=== PATIENT | female | born 1955 | race Caucasian/White ===

== ENCOUNTER 2016-03-03 13:32 | Day surgery (SDC) | payer OTHER ==
[~2016-03-03] VITALS: Ht 160 cm; Wt 68.0 kg
[~2016-03-03 13:32] MED LIST: AMLO-218 PO; ATOR20TA38 PO; ESOM20CA PO; GABA300C16 PO; HYDR12.58 PO; NAPR550T2 PO; SITA1TAB7 PO
[2016-03-03 14:55] VITALS: Ht 160 cm; Wt 68.0 kg
[2016-03-03] MEDS ORDERED: GLIP5TAB13 PO (15:08)
[2016-03-03] MEDS ORDERED: LOSA1TAB19 PO (15:08)
[2016-03-03] MEDS ORDERED: OMEP20CA16 PO (15:08)
[2016-03-03 15:58] VITALS: BP 147/70; PULSE 67; RESP 18
[2016-03-03] MEDS ORDERED: MIDAZOLAM 1 MG/ML 2 ML INJ ONE (16:06)
[2016-03-03] MEDS ORDERED: LIDOCAINE 2% (SDV) 5 ML INJ ONE (16:06)
[2016-03-03] MEDS ORDERED: PROPOFOL 20 ML ONE ×2 (16:06→16:35)
[2016-03-03 16:43] VITALS: BP 132/72; PULSE 71; RESP 14
[2016-03-03 17:10] VITALS: BP 157/79; PULSE 66; RESP 14
--- NOTE | 2016-03-03 19:34 | GILP ---
DATE OF PROCEDURE: NAME OF PROCEDURE: Colonoscopy to cecum. SURGEON: Marci Charles MD. HISTORY AND INDICATIONS: The patient is being evaluated for colorectal cancer screening. PREMEDICATION: Monitored anesthesia care by anesthesiologist. INSTRUMENT USED: Olympus colonoscope. PREPARATION: Adequate. TECHNIQUE: After informed consent, with the patient/relatives understanding the procedure, its indic ations potential risks and complications, including but not limited to: allergic reaction, bleeding, perforation, infection, missed lesions, and, after all pertinent questions were answered to the pat ient's satisfaction, the patient/relatives signed the witnessed informed consent. Following this, premedication was administered slowly IV push by under careful cardiovascular and re spiratory monitoring with pulse oximetry, automatic blood pressure and care consultant. Once the sedati ve effect was achieved, the patient was placed in the left lateral decubitus position, digital recta l examination was performed. The colonoscope was then introduced and advanced under visual control throughout all segments of the colon including: the rectum, sigmoid, descending colon, splenic flexu re, transverse colon, hepatic flexure, ascending colon and finally reaching the cecum which was brennon rly identified by transillumination, finger indentation and the ileocecal valve. Careful examinatio n of the mucosa of the lower gastrointestinal tract both on insertion as well as withdrawal of the i nstrument disclosed the following findings: Rectal Examination: No evidence of perirectal disease, no masses. Colonic Mucosa: The colon mucosa shows no abnormalities. Ileocecal valve was clearly identified an d appears unremarkable. The instrument was withdrawn. On withdrawal of the instrument, no addition al abnormalities are noted with exception of moderate sized internal hemorrhoids. The instrument was then withdrawn, the patient tolerated the procedure well and was transferred out of the Endoscopy Suite awake and in good condition to continue recovery under observation. IMPRESSION: 1. Normal colonic mucosa to cecum. 2. Moderate size internal hemorrhoids. PLAN: The patient will be placed on a high fiber diet, annual Hemoccult stool testing, and screenin g colonoscopy in 10 years. Dictated By: MARCI CHARLES MS/MARS Conf#: [id number] DID#: [id number] CC: MARCI CHARLES;*EndCC*
--- NOTE | 2016-03-03 19:37 | GILP ---
DATE OF PROCEDURE: NAME OF PROCEDURE: Esophagogastroduodenoscopy with biopsies. SURGEON: Marci Charles MD HISTORY AND INDICATIONS: The patient is being evaluated for abdominal pain. PREMEDICATION: Monitored anesthesia care by anesthesiologist. INSTRUMENT USED: Olympus panendoscope. TECHNIQUE: After informed consent, with the patient/relatives understanding the procedure, its krzysztof cations, potential risks and complications, including but not limited to: allergic reaction, bleedin g, perforation or infection, and after all pertinent questions were answered to the patient's satisf action, the patient/relatives signed witnessed informed consent. Following this, premedication was administered slowly IV push under careful cardiovascular and respi ratory monitoring with pulse oximetry, automatic blood pressure and labor relations officer. Once the sedative effect was achieved the patient was place in the left lateral decubitus, the panen doscope was introduced and advanced under visual control. Careful examination of the upper gastrointestinal tract, both on insertion as well as withdrawal of the instrument disclosed the following findings: ESOPHAGUS: The distal esophagus shows mild erythema and edema of the mucosa. Of note, the patient is receiving PPIs. STOMACH: Upon entrance to the stomach, air was insufflated. The gastric louie distended normally. There is erythema and edema of the mucosa of a moderate degree. Biopsies were obtained to rule out H pylori infection. PYLORUS: The pylorus appears patent and within normal limits with no evidence of gastric outlet obs truction. DUODENUM: The duodenal mucosa was carefully examined in the duodenal bulb as well as the second por tion of the duodenum and appears unremarkable with no evidence of duodenitis, ulcer or neoplasm. The instrument was then withdrawn. The patient tolerated the procedure well and was transferred out of the endoscopy suite awake and in good condition to continue recovery under observation. IMPRESSION: 1. Mild distal esophagitis, under treatment. 2. Moderate gastritis, rule out Helicobacter pylori infection. Biopsies obtained. PLAN: The patient will follow up as an outpatient. Pathology will be reviewed as soon as available . Further recommendation will depend on patient's clinical course as well as review of biopsies. Dictated By: MARCI CHARLES MS/MARS Conf#: [id number] DID#: [id number]
== END 2016-03-03 16:37 | disposition home or self-care (01) ==
LOC: GIL 13:32
PROVIDERS: ATTEND Internal Medicine Gastroenterology
DX: Z12.11 Encounter for screening for malignant neoplasm of colon (principal); K29.50 Unspecified chronic gastritis without bleeding; K20.8 Other esophagitis; K64.8 Other hemorrhoids; I10 Essential (primary) hypertension; E11.9 Type 2 diabetes mellitus without complications; E78.5 Hyperlipidemia, unspecified
CPT/HCPCS: 43239; 45378; 82962; 88305; 88312; J2250; Z7610

== ENCOUNTER 2016-12-02 13:15 | Emergency (ER) | payer OTHER ==
[~2016-12-02] VITALS: Ht 152.4 cm; Wt 70.5 kg
[~2016-12-02 13:15] MED LIST changes: -AMLO-218 PO; -ESOM20CA PO; +GLIP5TAB13 PO; -HYDR12.58 PO; +LOSA1TAB19 PO; -NAPR550T2 PO; +OMEP20CA16 PO
[2016-12-02 13:18] VITALS: Ht 152.4 cm; Wt 70.5 kg
[2016-12-02] MEDS ORDERED: ACETAMINOPHEN 325 MG TAB PO ONE (14:30)
--- NOTE | 2016-12-02 15:03 | RADRPT ---
PROCEDURE: CT brain without contrast CLINICAL INDICATION: Head injury TECHNIQUE: CT of the brain without contrast performed on a multidetector CT scanner, with multiplan ar reformats. One or more of the following dose reduction techniques were used: Automated exposure control, adjustment in mA and / or kV according to patient size, use of iterative reconstructive kitty hnique. CTDIvol = 45 mGy; DLP = 630 mGy-cm. COMPARISON: None available FINDINGS: No acute intracranial hemorrhage is identified. No extra-axial fluid collection is seen. There is no mass effect. No midline shift is identified. The ventricles and sulci are very mildly enlarged compatible with volume loss. The density of the brain appears unremarkable. Irizarry-white differentiation is preserved. Atherosclerotic calcifications of the intracranial internal carotid arteries are noted. Calvarium and skull base are intact. Mastoid air cells and imaged paranasal sinuses grossly clear. IMPRESSION: 1. No evidence of acute intracranial pathology. 2. Mild volume loss. RPTAT: VV .Jose Church MD, MD Date Time Electronically viewed and signed by .Jose Church MD, on 12/02/2016 15:02 .O/
--- NOTE | 2016-12-02 15:06 | RADRPT ---
PROCEDURE: CT face without contrast CLINICAL INDICATION: Trauma/injury to face - nose TECHNIQUE: CT of the face without contrast was performed on a multidetector CT scanner, with multip lanar reformats. One or more of the following dose reduction techniques were used: Automated exposu re control, adjustment in mA and / or kV according to patient size, use of iterative reconstructive technique. CTDIvol = 29 mGy and DLP = 503 mGy-cm. COMPARISON: None available. FINDINGS: No fracture is identified. Facial bones are intact. Bilateral orbital structures are unremarkable. T here is no temporomandibular joint dislocation. Mild degenerative changes seen at the temporal jordan bular joints. The patient is noted to be edentulous. Mild bilateral maxillary sinus, mild-moderate r ight and mild left anterior ethmoid air cell mucosal thickening, and mild left frontal sinus secreti ons are seen. IMPRESSION: 1. No facial fracture/dislocation or orbital injury identified. 2. Nasal sinus disease described above. 3. Mild bilateral temporomandibular joint degenerative changes. RPTAT: VV .Jose Church MD, MD Date Time Electronically viewed and signed by .Jose Church MD, on 12/02/2016 15:06 .O/
[2016-12-02] MEDS ORDERED: ACET500C5 PO (15:25)
--- NOTE | 2016-12-02 16:20 | ERD ---
ER Documentation Chief Complaint Date/Time DATE: 12/02/16 TIME: 16:16 Chief Complaint nasal swelling - something fell to her nose HPI 31-year-old female patient with a past medical history of diabetes presents to the ED complaining of a head and facial injury that occurred earlier today. Daughter was with patient at this time and stated that a loose fence fell onto her face and hit her head. Denies any loss of consciousness. Denies any fever , chills, nausea, vomiting, headache. States that patient's left nare had some bleeding but it stopped with added pressure. Denies taking any blood thinners. ROS All systems reviewed and are negative except as per history of present illness. Medications Home Meds Active Scripts Acetaminophen* (Tylophen*) 500 Mg Capsule, 1 CAP PO Q6H Y for PAIN AND OR ELEVATED TEMP, #20 CAP Prov:KARTHIK SANTILLAN PA-C 12/02/16 Reported Medications Losartan-Hydrochlorothiazide (Losartan-HCTZ) 50-12.5 Mg Tab, 1 TAB PO DAILY, TAB 03/03/16 Omeprazole* (Omeprazole*) 20 Mg Capsule.dr, 20 MG PO DAILY, #30 CAP 03/03/16 Glipizide* (Glipizide*) 5 Mg Tablet, 5 MG PO AC BREAKFAST, TAB 03/03/16 Gabapentin* (Gabapentin*) 300 Mg Capsule, 300 MG PO QHS, #60 CAP 04/16/15 Atorvastatin Calcium* (Atorvastatin Calcium*) 20 Mg Tablet, 20 MG PO QHS, #30 TAB 04/16/15 Sitagliptin Phos-Metformin Hcl (Janumet) 50-1,000 Mg Tablet, 1 TAB PO WITH BREAKFAST DINNE, #60 TAB 04/16/15 Allergies Allergies: Coded Allergies: No Known Allergy (Unverified , 04/16/15) PMhx/Soc Anesthesia Reaction: No Hx Neurological Disorder: No Hx Respiratory Disorders: No Hx Cardiac Disorders: Yes (HTN, HLD) Hx Psychiatric Problems: No Hx Miscellaneous Medical Probl: Yes (DM, GASTRITIS) Hx Alcohol Use: No Hx Substance Use: No Hx Tobacco Use: No Smoking Status: Never smoker Physical Exam Vitals Vital Signs Date Time Temp Pulse Resp B/P Pulse Ox O2 Delivery O2 Flow Rate FiO2 12/02/16 13:18 99.0 77 19 178/86 99 Physical Exam Const: Hmk-zxo-yoaczyrld, well-nourished. In no acute distress. Head: Atraumatic, normocephalic Eyes: Normal Conjunctiva without injection. No purulent discharge. PERRLA. EOMI ENT: Normal external ear. Ear canal without erythema. Tympanic membrane pearly irizarry without effusion or bulging. Nasal canal clear with normal turbinates. Moist oropharynx without tonsillar exudates. Non-erythematous pharynx. Uvula midline. No drooling. No trismus. Neck: No cervical midline tenderness. Full range of motion. No meningismus. No cervical lymphadenopathy. No JVD. Resp: Clear to auscultation bilaterally. No wheezing, rhonchi, rales, or crackles. No accessory muscle use. No retractions. Cardio: Regular rate and rhythm. No murmurs, rubs or gallops. Abd: Soft, non tender, non distended. Normal bowel sounds. No palpable masses. No rebound tenderness. No guarding. Negative McBurney's Point. Negative Blanton's Sign. Skin: Normal skin turgor. No petechiae or rashes Back: No midline tenderness. No CVA tenderness. Ext: No cyanosis, or edema. Distal pulses intact bilaterally. Neur: Awake and alert. Normal gait. Normal coordination. Cranial Nerves II- VII intact. Normal finger to nose. Muscle strength 5/5. Sensation intact. Psych: Normal Mood and Affect Results 24 hrs Current Medications Medications (Trade) Dose Ordered Sig/Ruby Route PRN Reason Start Time Stop Time Status Last Admin Dose Admin Acetaminophen (Tylenol Tab) 650 mg ONCE ONCE PO 12/02/16 14:30 12/02/16 14:31 DC 12/02/16 15:14 Procedures/MDM 61-year-old female patient with no significant past medical history presents to the ED complaining of nose injury and facial injury. Patient is afebrile and nontoxic-appearing. Patient has normal vital signs. CT of the brain without contrast, CT of the facial bones was ordered to further evaluate patient. Patient was given Tylenol here in the ED with improvement of her symptoms. PROCEDURE: CT brain without contrast CLINICAL INDICATION: Head injury TECHNIQUE: CT of the brain without contrast performed on a multidetector CT scanner, with multiplanar reformats. One or more of the following dose reduction techniques were used: Automated exposure control, adjustment in mA and / or kV according to patient size, use of iterative reconstructive technique. CTDIvol = 45 mGy; DLP = 630 mGy-cm. COMPARISON: None available FINDINGS: No acute intracranial hemorrhage is identified. No extra-axial fluid collection is seen. There is no mass effect. No midline shift is identified. The ventricles and sulci are very mildly enlarged compatible with volume loss. The density of the brain appears unremarkable. Irizarry-white differentiation is preserved. Atherosclerotic calcifications of the intracranial internal carotid arteries are noted. Calvarium and skull base are intact. Mastoid air cells and imaged paranasal sinuses grossly clear. IMPRESSION: 1. No evidence of acute intracranial pathology. 2. Mild volume loss. PROCEDURE: CT face without contrast CLINICAL INDICATION: Trauma/injury to face - nose TECHNIQUE: CT of the face without contrast was performed on a multidetector CT scanner, with multiplanar reformats. One or more of the following dose reduction techniques were used: Automated exposure control, adjustment in mA and / or kV according to patient size, use of iterative reconstructive technique. CTDIvol = 29 mGy and DLP = 503 mGy-cm. COMPARISON: None available. FINDINGS: No fracture is identified. Facial bones are intact. Bilateral orbital structures are unremarkable. There is no temporomandibular joint dislocation. Mild degenerative changes seen at the temporal mandibular joints. The patient is noted to be edentulous. Mild bilateral maxillary sinus, mild-moderate right and mild left anterior ethmoid air cell mucosal thickening, and mild left frontal sinus secretions are seen. IMPRESSION: 1. No facial fracture/dislocation or orbital injury identified. 2. Nasal sinus disease described above. 3. Mild bilateral temporomandibular joint degenerative changes. Low suspicion for septal hematoma, intracranial bleed, fractures, dislocation, subarachnoid hemorrhage, meningitis, TIA, stroke, subdural hematoma, epidural hematoma, cavernous sinus thrombosis or other emergent conditions. Discharge medications: Tylenol Follow up with primary care physician in 1-2 days. Instructed patient to return to the ED sooner for any worsening symptoms. Patient's questions were answered. Patient understood and agreed with discharge plan. Patient discharged stable. Departure Diagnosis: Primary Impression: Head injury Encounter type: initial encounter Qualified Code: S09.90XA - Injury of head , initial encounter Additional Impression: Facial injury Encounter type: initial encounter Qualified Code: S09.93XA - Facial injury, initial encounter Condition: Stable Patient Instructions: Facial Contusion, No Wakeup, HEAD INJURY, No Wake-Up ( Adult) Referrals: [facility] YOU HAVE RECEIVED A MEDICAL SCREENING EXAM AND THE RESULTS INDICATE THAT YOU DO NOT HAVE A CONDITION THAT REQUIRES URGENT TREATMENT IN THE EMERGENCY DEPARTMENT. FURTHER EVALUATION AND TREATMENT OF YOUR CONDITION CAN WAIT UNTIL YOU ARE SEEN IN YOUR DOCTORS OFFICE WITHIN THE NEXT 1-2 DAYS. IT IS YOUR RESPONSIBILITY TO MAKE AN APPOINTMENT FOR FOLOW-UP CARE. IF YOU HAVE A PRIMARY DOCTOR --you should call your primary doctor and schedule an appointment IF YOU DO NOT HAVE A PRIMARY DOCTOR YOU CAN CALL OUR PHYSICIAN REFERRAL HOTLINE AT IF YOU CAN NOT AFFORD TO SEE A PHYSICIAN YOU CAN CHOSE FROM THE FOLLOWING [facility] [address] [facility] [address] [facility] [facility] [address] [facility] [address] [facility] [address] [facility] [facility] [address] [facility] [facility] YOU HAVE RECEIVED A MEDICAL SCREENING EXAM AND THE RESULTS INDICATE THAT YOU DO NOT HAVE A CONDITION THAT REQUIRES URGENT TREATMENT IN THE EMERGENCY DEPARTMENT. FURTHER EVALUATION AND TREATMENT OF YOUR CONDITION CAN WAIT UNTIL YOU ARE SEEN IN YOUR DOCTORS OFFICE WITHIN THE NEXT 1-2 DAYS. IT IS YOUR RESPONSIBILITY TO MAKE AN APPOINTMENT FOR FOLOW-UP CARE. IF YOU HAVE A PRIMARY DOCTOR --you should call your primary doctor and schedule and appointment IF YOU DO NOT HAVE A PRIMARY DOCTOR YOU CAN CALL OUR PHYSICIAN REFERRAL HOTLINE AT . IF YOU CAN NOT AFFORD TO SEE A PHYSICIAN YOU CAN CHOSE FROM THE FOLLOWING [facility]: [facility] [address] [place] [address] [facility] [address] [place] [address] [facility] [address] [place] [address] [facility] URGENT CARE/SPECIALTIES Additional Instructions: Visite a mendez mdico maana para un EXAMEN para la reexaminacin de la nariz.Regrese a estas instalaciones si no se mejora kirill esperbamos o kirill le dijimos. KARTHIK SANTILLAN PA-C Dec 02, 2016 16:20
== END 2016-12-02 16:20 | disposition home or self-care (01) ==
LOC: FTE 13:15
DX: S09.90XA Unspecified injury of head, initial encounter (principal); S09.93XA Unspecified injury of face, initial encounter; I10 Essential (primary) hypertension; E11.9 Type 2 diabetes mellitus without complications; R51 Headache; W20.8XXA Other cause of strike by thrown, projected or falling object, initial encounter; Y92.9 Unspecified place or not applicable; Z79.84 Long term (current) use of oral hypoglycemic drugs
CPT/HCPCS: 70450; 70486; Z7502; Z7610

== ENCOUNTER 2016-12-09 00:06 | Emergency (ER) | payer OTHER ==
[~2016-12-09] VITALS: Ht 160 cm; Wt 70.5 kg
[~2016-12-09 00:06] MED LIST changes: +ACET500C5 PO
[2016-12-09 00:20] VITALS: Ht 160 cm; Wt 70.5 kg
[2016-12-09 01:40] VITALS: TEMP 98.2
[2016-12-09] MEDS ORDERED: DIPHENHYDRAMINE 50 MG INJ IV STA (02:35)
[2016-12-09] MEDS ORDERED: HYDROmorphONE 1 MG/ML SYG IV STA (02:35)
[2016-12-09] MEDS ORDERED: PROCHLORPERAZINE 10 MG INJ IV STA (02:35)
--- NOTE | 2016-12-09 02:35 | ERD ---
ER Documentation Chief Complaint Date/Time DATE: 12/09/16 TIME: 02:32 Chief Complaint severe frontal MELGOZA, nauseated today,Tylenol not working, hx HTN&DM HPI This is a 61-year-old female states she has had a headache for 12 days. Patient says she has a headache history in the past for several years and she says this is the same type of headache is stronger. She says if she takes pain medication the headache as marketed reduction but does not go away all the way. She says the headache is located at the bitemporal region and occipital region and it is throbbing. She has photophobia, phonophobia, worse with position change. She has some nausea but no vomiting no focal neurological complaints such as numbness or weakness no speech change or visual change. No fever neck pain chest pain shortness of breath. ROS All systems reviewed and are negative except as per history of present illness. Medications Home Meds Active Scripts Ibuprofen* (Motrin*) 800 Mg Tab, 800 MG PO Q6H Y for PAIN AND OR ELEVATED TEMP, #30 TAB Prov:JOANIE FRANCIS DO 12/09/16 Hydrocodone/Acetaminophen (Klondike 10-325 Tablet) 1 Each Tablet, 1 TAB PO Q6H Y for PAIN, #20 TAB Prov:JOANIE FRANCIS DO 12/09/16 Acetaminophen* (Tylophen*) 500 Mg Capsule, 1 CAP PO Q6H Y for PAIN AND OR ELEVATED TEMP, #20 CAP Prov:KARTHIK SANTILLAN PA-C 12/02/16 Reported Medications Losartan-Hydrochlorothiazide (Losartan-HCTZ) 50-12.5 Mg Tab, 1 TAB PO DAILY, TAB 03/03/16 Omeprazole* (Omeprazole*) 20 Mg Capsule.dr, 20 MG PO DAILY, #30 CAP 03/03/16 Glipizide* (Glipizide*) 5 Mg Tablet, 5 MG PO AC BREAKFAST, TAB 03/03/16 Gabapentin* (Gabapentin*) 300 Mg Capsule, 300 MG PO QHS, #60 CAP 04/16/15 Atorvastatin Calcium* (Atorvastatin Calcium*) 20 Mg Tablet, 20 MG PO QHS, #30 TAB 04/16/15 Sitagliptin Phos-Metformin Hcl (Janumet) 50-1,000 Mg Tablet, 1 TAB PO WITH BREAKFAST DINNE, #60 TAB 2/24/16 Allergies Allergies: Coded Allergies: No Known Allergy (Unverified , 04/16/15) PMhx/Soc Anesthesia Reaction: No Hx Neurological Disorder: No Hx Respiratory Disorders: No Hx Cardiac Disorders: Yes (HTN, HLD) Hx Psychiatric Problems: No Hx Miscellaneous Medical Probl: Yes (DM, GASTRITIS) Hx Alcohol Use: No Hx Substance Use: No Hx Tobacco Use: No FmHx Family History: No coronary disease Physical Exam Vitals Vital Signs Date Time Temp Pulse Resp B/P Pulse Ox O2 Delivery O2 Flow Rate FiO2 12/09/16 04:00 66 10 132/72 96 Room Air 12/09/16 03:00 67 16 187/75 98 Room Air 12/09/16 01:40 98.2 69 20 168/70 98 12/09/16 00:20 98.2 75 20 186/73 96 Physical Exam Const: Well-developed, well-nourished Head: Atraumatic, normocephalic Eyes: Normal Conjunctiva, PERRLA, EOMI, normal sclera, no nystagmus ENT: Normal External Ears, Nose and Mouth, moist mucus membranes. Neck: Full range of motion. No meningismus, no lymphadenopathy. Resp: Clear to auscultation bilaterally, no wheezing, rhonchi, rales Cardio: Regular rate and rhythm, no murmurs, S1 S2 present Abd: Soft, non tender x 4, non distended. Normal bowel sounds, no guarding or rebound, no pulsitile abdominal masses or bruits Skin: No petechiae or rashes, no ecchymosis , no maculopapular rash Back: No midline or flank tenderness Ext: No cyanosis, or edema, FROM x 4, normal inspection, neurovascularly intact x 4 Neur: Awake and alert, STR 5/5 x 4, sensation intact x 4, no focal findings, cerebellum intact Psych: Normal Mood and Affect Result Diagram: 12/09/16 0230 12/09/16 0230 Results 24 hrs Laboratory Tests Test 12/09/16 02:30 White Blood Count 6.610^3/ul Red Blood Count 4.5010^6/ul Hemoglobin 12.1g/dl Hematocrit 36.2% Mean Corpuscular Volume 80.4fl Mean Corpuscular Hemoglobin 26.9pg Mean Corpuscular Hemoglobin Concent 33.4g/dl Red Cell Distribution Width 14.7% Platelet Count 82675^3/UL Mean Platelet Volume 10.1fl Neutrophils % 34.9% Lymphocytes % 55.9% Monocytes % 6.8% Eosinophils % 1.4% Basophils % 0.8% Nucleated Red Blood Cells % 0.0/100WBC Neutrophils # 2.310^3/ul Lymphocytes # 3.710^3/ul Monocytes # 0.510^3/ul Eosinophils # 0.110^3/ul Basophils # 0.110^3/ul Nucleated Red Blood Cells # 0.010^3/ul Prothrombin Time 12.7Sec Prothrombin Time Ratio 1.0 INR International Normalized Ratio 0.95 Activated Partial Thromboplast Time 26.3Sec Sodium Level 139mmol/L Potassium Level 3.7mmol/L Chloride Level 99mmol/L Carbon Dioxide Level 30mmol/L Anion Gap 14 Blood Urea Nitrogen 10mg/dl Creatinine 0.50mg/dl Glucose Level 147mg/dl Calcium Level 9.3mg/dl Current Medications Medications (Trade) Dose Ordered Sig/Ruby Route PRN Reason Start Time Stop Time Status Last Admin Dose Admin Prochlorperazine (Compazine Inj) 10 mg ONCE STAT IV 12/09/16 02:35 12/09/16 02:36 DC 12/09/16 03:29 Hydromorphone HCl (Dilaudid) 1 mg ONCE STAT IV 12/09/16 02:35 12/09/16 02:36 DC 12/09/16 02:49 Diphenhydramine HCl (Benadryl) 25 mg ONCE STAT IV 12/09/16 02:35 12/09/16 02:36 DC 12/09/16 02:49 Procedures/MDM PROCEDURE: CT Brain without contrast. CLINICAL INDICATION: Headache TECHNIQUE: A CT of the brain was performed on a GE 64-slice CT scanner utilizing axial imaging from the skull base through the vertex without IV contrast. Multiplanar reformatted images were made. Images were reviewed on a PACS workstation. The CTDIvol is 45.01 mGy and the DLP is 720.23 mGycm. One or more of the following dose reduction techniques were used: automated exposure control, adjustment of the mA and/or kV according to patient size, or use of iterative reconstruction technique. COMPARISON: 12/02/2016 FINDINGS: There is no intracranial hemorrhage, mass effect, or midline shift. No extra- axial fluid collection is seen. The ventricles and sulci are normal in size and configuration. The density of the brain is normal, and the atwood white matter differentiation appears well-preserved. The brainstem and posterior fossa are normal. There is mild mucosal thickening in the maxillary sinuses. The calvarium is normal. Bilateral internal carotid arteries are calcified. IMPRESSION: 1. No evidence of acute intracranial pathology. RPTAT: HCNS Physician Cookie Date Time Electronically viewed and signed by Yousif Lopes Physician on 12/09/2016 03: 55 CS/ CC: JOANIE FRANCIS DO On reevaluation at 5 AM the patient says she has 0 out of 10 pain. The Criss patient's headache is migrainous in nature she has a same headache for many many years although tonight's was stronger at the same pattern and symptomatology. No evidence of intracranial pathology we will discharge home with Klondike kate Alavrado Departure Diagnosis: Primary Impression: Migraine headache Migraine type: unspecified Status migrainosus presence: without status migrainosus Intractability: not intractable Qualified Code: G43.909 - Migraine without status migrainosus, not intractable, unspecified migraine type Condition: Stable JOANIE FRANCIS DO Dec 09, 2016 02:35
[2016-12-09 03:17] LABS: BASOPHIL # 0.1 10^3/ul (0.0-0.1); BASOPHILS % 0.8 % (0.0-2.0); EOSINOPHILS # 0.1 10^3/ul (0.0-0.5); EOSINOPHILS % 1.4 % (0.0-7.0); HEMATOCRIT 36.2 % (37.0-47.0); HEMOGLOBIN 12.1 g/dl (12.0-16.0); LYMPHOCYTES # 3.7 10^3/ul (0.8-2.9); LYMPHOCYTES % 55.9 % (15.0-51.0); MEAN CORPUSCULAR HEMOGLOBIN 26.9 pg (29.0-33.0); MEAN CORPUSCULAR HGB CONC 33.4 g/dl (32.0-37.0); MEAN CORPUSCULAR VOLUME 80.4 fl (82.0-101.0); MEAN PLATELET VOLUME 10.1 fl (7.4-10.4); MONOCYTE # 0.5 10^3/ul (0.3-0.9); MONOCYTES % 6.8 % (0.0-11.0); NEUTROPHIL # 2.3 10^3/ul (1.6-7.5); NEUTROPHILS % 34.9 % (39.0-77.0); PLATELET COUNT 259 10^3/UL (140-415); RED CELL DISTRIBUTION WIDTH 14.7 % (11.5-14.5); WHITE BLOOD COUNT 6.6 10^3/ul (4.8-10.8)
[2016-12-09 03:34] LABS: INR 0.95; PARTIAL THROMBOPLASTIN TIME 26.3 Sec (25.0-35.0); PROTIME 12.7 Sec (12.2-14.2)
--- NOTE | 2016-12-09 03:55 | RADRPT ---
PROCEDURE: CT Brain without contrast. CLINICAL INDICATION: Headache TECHNIQUE: A CT of the brain was performed on a GE 64-slice CT scanner utilizing axial imaging fr om the skull base through the vertex without IV contrast. Multiplanar reformatted images were made. Images were reviewed on a PACS workstation. The CTDIvol is 45.01 mGy and the DLP is 720.23 mGycm. One or more of the following dose reduction techniques were used: automated exposure control, adju stment of the mA and/or kV according to patient size, or use of iterative reconstruction technique. COMPARISON: 12/02/2016 FINDINGS: There is no intracranial hemorrhage, mass effect, or midline shift. No extra-axial fluid collection is seen. The ventricles and sulci are normal in size and configuration. The density of the brain is normal, and the [place] white matter differentiation appears well-preserved. The brainstem and posteri or fossa are normal. There is mild mucosal thickening in the maxillary sinuses. The calvarium is nor mal. Bilateral internal carotid arteries are calcified. IMPRESSION: 1. No evidence of acute intracranial pathology. RPTAT: HCNS Physician Cookie Date Time Electronically viewed and signed by Physician Cookie on 12/09/2016 03:55 /
[2016-12-09 04:00] LABS: CALCIUM 9.3 mg/dl (8.4-10.2); CREATININE 0.5 mg/dl (0.44-1.00); POTASSIUM 3.7 mmol/L (3.5-5.1)
[2016-12-09] MEDS ORDERED: HYDR-902 PO (04:57)
[2016-12-09] MEDS ORDERED: IBUP800T25 PO (04:57)
[2016-12-09 05:00] VITALS: BP 142/73; PULSE 64; RESP 12
== END 2016-12-09 05:17 | disposition home or self-care (01) ==
LOC: E/R 00:06
DX: G43.909 Migraine, unspecified, not intractable, without status migrainosus (principal); E11.9 Type 2 diabetes mellitus without complications; I10 Essential (primary) hypertension; R07.9 Chest pain, unspecified; Z79.84 Long term (current) use of oral hypoglycemic drugs
CPT/HCPCS: 70450; 80048; 85025; 85610; 85730; J0780; J1170; J1200; 36415; 96374; 96375

== ENCOUNTER 2018-07-08 18:26 | Emergency (ER) | payer OTHER ==
[~2018-07-08] VITALS: Wt 78.0 kg
[~2018-07-08 18:26] MED LIST changes: +HYDR-3980 PO; +IBUP800T48 PO; -LOSA1TAB19 PO; +LOSA1TAB22 PO
[2018-07-08] MEDS ORDERED: SOD CHLORIDE 0.9% 1,000 ML IV STA (18:34)
[2018-07-08] MEDS ORDERED: ONDANSETRON 4 MG INJ IV STA (18:34)
--- NOTE | 2018-07-08 20:19 | ERD ---
ER Documentation Chief Complaint Chief Complaint N/V SINCE TODAY WITH DIAPHORESIS. DENIES CP. MILD SOB. BS 211 HPI This is a 63-year-old female presents to the emergency room with generalized weakness and nausea and vomiting that started earlier today. 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 Patient ate some food and then several hours later had multiple episodes of nonbloody nonbilious emesis. Her blood pressure is elevated and has a history of hypertension. She denies any headache chest pain or shortness of breath, no abdominal pain but again the history is extremely limited and the patient is poorly cooperative with history and exam. ROS All systems reviewed and are negative except as per history of present illness. Medications Home Meds Active Scripts Ondansetron (Ondansetron Odt) 4 Mg Tab.rapdis, 4 MG PO Q6H PRN for NAUSEA AND/OR VOMITING, #30 TAB Prov:MICHEL FRY MD 07/08/18 Ibuprofen* (Motrin*) 800 Mg Tab, 800 MG PO Q6H PRN for PAIN AND OR ELEVATED TEMP, #30 TAB Prov:MICHEL FRY MD 07/08/18 Ibuprofen* (Motrin*) 800 Mg Tab, 800 MG PO Q6H PRN for PAIN AND OR ELEVATED TEMP, #30 TAB Prov:JOANIE FRANCIS DO 12/09/16 Hydrocodone/Acetaminophen ([place] 10-325 Tablet) 1 Each Tablet, 1 TAB PO Q6H PRN for PAIN, #20 TAB Prov:JOANIE FRANCIS DO 12/09/16 Acetaminophen* (Tylophen*) 500 Mg Capsule, 1 CAP PO Q6H PRN for PAIN AND OR ELEVATED TEMP, #20 CAP Prov:KARTHIK SANTILLAN PA-C 12/02/16 Reported Medications Losartan-Hydrochlorothiazide (Losartan-HCTZ) 50-12.5 Mg Tab, 1 TAB PO DAILY, TAB 03/03/16 Omeprazole* (Omeprazole*) 20 Mg Capsule.dr, 20 MG PO DAILY, #30 CAP 03/03/16 Glipizide* (Glipizide*) 5 Mg Tablet, 5 MG PO AC BREAKFAST, TAB 03/03/16 Gabapentin* (Gabapentin*) 300 Mg Capsule, 300 MG PO QHS, #60 CAP 2/24/16 Atorvastatin Calcium* (Atorvastatin Calcium*) 20 Mg Tablet, 20 MG PO QHS, #30 TAB 04/16/15 Sitagliptin Phos-Metformin Hcl (Janumet) 50-1,000 Mg Tablet, 1 TAB PO WITH BREAKFAST DINNE, #60 TAB 04/16/15 Allergies Allergies: Coded Allergies: No Known Allergy (Unverified , 12/09/16) PMhx/Soc History of Surgery: Yes (appendectomy ) Anesthesia Reaction: No Hx Neurological Disorder: No Hx Respiratory Disorders: No Hx Cardiac Disorders: Yes (HTN, HLD) Hx Psychiatric Problems: No Hx Miscellaneous Medical Probl: Yes (DM, GASTRITIS) Hx Alcohol Use: No Hx Substance Use: No Hx Tobacco Use: No FmHx Family History: No diabetes Physical Exam Vitals Vital Signs Date Temp Pulse Resp B/P (MAP) Pulse Ox O2 O2 Flow FiO2 Time Delivery Rate 07/08/18 97.9 68 18 165/68 94 Room Air 21:49 (100) 07/08/18 97.9 88 18 204/84 97 18:28 (124) Physical Exam General: Patient with decreased responsiveness but intermittent and somewhat behavioral Head: Normocephalic, atraumatic. Eyes: Pupils equally reactive, EOM intact ENT: Moist mucous membranes Neck: Supple, no lymphadenopathy Respiratory: Lungs clear bilaterally, no distress Cardiovascular: Tachycardia, no murmurs, rubs, or gallops Abdominal: Soft, non-tender, non-distended, no peritoneal signs : Deferred MSK: No edema, no unilateral swelling Neurologic: Poorly cooperative, generalized weakness but moving all extremities Skin: No rash Psych: Anxious mood Result Diagram: 07/08/18 1842 07/08/18 1842 Results 24 hrs Laboratory Tests Test 07/08/18 18:27 07/08/18 18:42 07/08/18 19:35 Bedside Glucose 211 mg/dL 219 mg/dL White Blood Count 11.3 10^3/ul Red Blood Count 4.89 10^6/ul Hemoglobin 11.8 g/dl Hematocrit 37.5 % Mean Corpuscular Volume 76.7 fl Mean Corpuscular Hemoglobin 24.1 pg Mean Corpuscular 31.5 g/dl Hemoglobin Concent Red Cell Distribution Width 15.0 % Platelet Count 315 10^3/UL Mean Platelet Volume 10.6 fl Immature Granulocytes % 0.400 % Neutrophils % 62.9 % Lymphocytes % 30.5 % Monocytes % 5.1 % Eosinophils % 0.6 % Basophils % 0.5 % Nucleated Red Blood Cells % 0.0 /100WBC Immature Granulocytes # 0.050 10^3/ul Neutrophils # 7.1 10^3/ul Lymphocytes # 3.4 10^3/ul Monocytes # 0.6 10^3/ul Eosinophils # 0.1 10^3/ul Basophils # 0.1 10^3/ul Nucleated Red Blood Cells # 0.0 10^3/ul Prothrombin Time 11.7 Sec Prothrombin Time Ratio 0.9 INR International Normalized Ratio 0.85 Activated Partial Thromboplast 24.2 Sec Time Sodium Level 138 mmol/L Potassium Level 3.6 mmol/L Chloride Level 98 mmol/L Carbon Dioxide Level 25 mmol/L Anion Gap 15 Blood Urea Nitrogen 12 mg/dl Creatinine 0.56 mg/dl Est Glomerular Filtrat Rate mL/min > 60 mL/min Glucose Level 224 mg/dl Calcium Level 9.5 mg/dl Total Bilirubin 0.3 mg/dl Direct Bilirubin 0.00 mg/dl Indirect Bilirubin 0.3 mg/dl Aspartate Amino Transf (AST/SGOT) 25 IU/L Alanine 24 IU/L Aminotransferase (ALT/SGPT) Alkaline Phosphatase 133 IU/L Troponin I < 0.012 ng/ml Total Protein 8.7 g/dl Albumin 4.9 g/dl Globulin 3.80 g/dl Albumin/Globulin Ratio 1.28 Current Medications Medications Dose Sig/Ruby Start Time Status Last (Trade) Ordered Route PRN Stop Time Admin Dose Reason Admin Sodium 1,000 ml @ Q1H STAT 07/08/18 DC 07/08/18 Chloride 1,000 mls/hr IV 18:34 19:42 07/08/18 19:33 Ondansetron 4 mg ONCE STAT 07/08/18 DC 07/08/18 HCl (Zofran IV 18:34 18:34 Inj) 07/08/18 18:35 Procedures/MDM EKG, MONITORS, & DIAGNOSTIC IMAGING: EKG: I reviewed and interpreted a 12-lead EKG. Rhythm: Normal sinus rhythm ST Changes: No contiguous ST segment elevations T waves: No contiguous T wave inversions Impression: No evidence of acute cardiac ischemia Chest x-ray: I reviewed and interpreted a 1 view of the chest Mediastinum: No enlargement Cardiac silhouette: No cardiomegaly Airspace: Clear lung vazquez bilaterally without evidence of pneumothorax Bones: No evidence of fracture CT brain: IMPRESSION: 1. Normal noncontrast CT scan of the brain. 2. No intracranial hemorrhage. 3. No change from 12/09/2016. RPTAT: QQ CT abdomen and pelvis: IMPRESSION: 1. Gallstones in the gallbladder. 2. Atherosclerosis. 3. Otherwise unremarkable noncontrast CT scan of the abdomen and pelvis. RPTAT: QQ LAB INTERPRETATION: I reviewed the laboratory testing and it shows nonspecific white count of 11, chemistry profile with mild hyperglycemia but no DKA, negative troponin MEDICAL DECISION MAKING: The patient's presentation is consistent with nonspecific nausea and vomiting. The patient is a very limited and difficult historian. A differential is broad and includes acute intracranial process, hypertensive emergency, acute intra- abdominal process among others. Most likely etiology is possible viral process but there is a significant emotional component to this complicating the picture. A broad work-up was initiated including symptom control and CT imaging. ER COURSE: * The patient was given symptom control medication with a dramatic improvement. She is now resting comfortably. Blood pressure improved. * Laboratory testing and diagnostic imaging is unrevealing for serious etiology of the patient's nausea and vomiting. Again this is more likely a foodborne illness versus viral process. The patient has stabilized and is resting comfortably. At this point I feel outpatient management is more than appropriate. Symptom control medication will be provided. Return precautions were discussed and understood. Science Liaison used during the patient's encounter. CONSULTATION: None DISPOSITION PLAN: The patient does not have an identifiable emergent medical condition that warrants inpatient hospitalization at this time. The patient is deemed safe for discharge with outpatient follow-up. We discussed follow up with the patient's primary care doctor within 24 to 48 hours as needed. We also discussed return to the emergency room for worsening symptoms or worsening condition. Outpatient referral: None required Discharge Medications: Zofran, Motrin Departure Diagnosis: Primary Impression: Nausea and vomiting Vomiting type: unspecified Vomiting Intractability: non-intractable Qualified Codes: R11.2 - Nausea with vomiting, unspecified Additional Impressions: Hyperglycemia Hypertensive urgency Condition: Stable MICHEL FRY MD July 08, 2018 20:19
[2018-07-08] MEDS ORDERED: IBUP800T48 PO (21:56)
[2018-07-08] MEDS ORDERED: ONDA4TAB14 PO (21:56)
[2018-07-08 22:18] VITALS: BP 150/65; PULSE 76; RESP 15
[2018-07-08] MEDS ORDERED: ONDANSETRON (ODT) 4 MG TAB ODT ONE (22:33)
[2018-07-08] MEDS ORDERED: ONDANSETRON (ODT) 4 MG TAB ODT STA (22:33)
--- NOTE | 2018-07-09 11:55 | RADRPT ---
Vent Rate: 67 bpm RR Interval: 0 msec [place] Interval: 116 msec QRS Duration: 82 msec QT Interval: 436 msec QTC Interval: 460 msec P-R-T Jemison: 30 - 32 - 23 degrees Normal sinus rhythm Minimal voltage criteria for LVH, may be normal variant ST abnormality, possible digitalis effect Abnormal ECG Electronically Signed By: *[facility]
== END 2018-07-08 22:34 | disposition home or self-care (01) ==
LOC: E/R 18:26
DX: E11.65 Type 2 diabetes mellitus with hyperglycemia (principal); I16.0 Hypertensive urgency; I10 Essential (primary) hypertension; R41.82 Altered mental status, unspecified; Z79.84 Long term (current) use of oral hypoglycemic drugs
CPT/HCPCS: 36415; 70450; 71045; 74176; 80053; 81001; 82962; 84484; 85025; 85610; 85730; 93005; 96374; J2405; J7030; Z7502; Z7610